=== PATIENT | female | born 1980 | race Caucasian/White ===

== ENCOUNTER 2025-01-01 00:18 | Emergency (ER) | payer MEDICAID, SELFPAY ==
[2025-01-01 00:18] VITALS: BMI 18.8
[2025-01-01 01:08] VITALS: BP 165/123; BP 176/125; PULSE 81; RESP 16; TEMP 36.8; O2SAT 99
[2025-01-01 01:39] VITALS: BP 155/107
--- NOTE | 2025-01-01 01:40 | EDNOTE_ITS ---
ED Dental RME/HPI General Chief complaint: Dental/Oral/Throat Stated complaint: LEFT SIDE FACE SWOLLEN, HURTS TO SWALLOW Time Seen by Provider: 01/01/25 00:28 Source: patient Arrival date/time: 01/01/25 00 This is a case of 44 year old female who came in with left lower dental pain with swelling on her left mandible for 1 week worse today denies drooling of saliva Limitations: no limitations Related Data Home Medications ?Medication ?Instructions ?Recorded ?Confirmed medroxyprogesterone 150 mg/mL 1 ml UD ##0 01/20/17 intramuscular suspension (Depo-Provera) Previous Rx's ?Medication ?Instructions ?Recorded clindamycin HCl 300 mg capsule 300 mg PO Q6H 10 days # 40 caps 01/01/25 hydrocodone 5 mg-acetaminophen 325 1 tab PO Q6H PRN pa in #10 tabs 01/01/25 mg tablet Allergies Allergy/AdvReac Type Severity Reaction Status Date / Time No Known Allergies Allergy Verified 01/25/18 08:44 Review of Systems Review of Systems Systems Reviewed: All systems reviewed, normal except as documented Constitutional Constitutional: Reports system reviewed and no additional complaints, except as documented and Denies headache(s) ENT Ears, Nose, Mouth, and Throat: Reports system reviewed and no additional complaints, except as documented, Reports as per HPI, Denies abnormal hearing, Denies bleeding gums, Denies change in voice, Reports dental pain, Denies disequilibrium, Denies dizziness, Denies dry mouth, Denies dysphagia, Denies ear discharge, Denies otalgia, Denies epistaxis, Denies facial pain, Denies halitosis, Denies headache(s), Denies hearing loss, Denies hoarseness, Denies lip swelling, Denies mouth lesions, Denies mouth pain, Denies nasal congestion and Denies nasal discharge Cardiovascular Cardiovascular: Reports system reviewed and no additional complaints, except as documented, Reports as per HPI, Denies chest pain and Denies chest pain at rest Gastrointestinal Gastrointestinal: Reports system reviewed and no additional complaints, except as documented, Reports as per HPI and Denies dysphagia Genitourinary Genitourinary: Reports system reviewed and no additional complaints, except as documented and Reports as per HPI Musculoskeletal Musculoskeletal: Reports system reviewed and no additional complaints, except as documented and Reports as per HPI Neurologic Neurologic: Reports system reviewed and no additional complaints, except as documented, Reports as per HPI, Denies abnormal hearing, Denies disequilibrium, Denies dizziness and Denies headache(s) Allergic/Immunologic Allergic/Immunologic: Denies lip swelling Past Medical History Past Medical History NEUROLOGIC: Positive Neurological Disorders and Migraine (LAST EPISODE 2013); Negative Seizures CARDIAC: Negative Cardiac Disorders or Congestive Heart Failure RESPIRATORY: Negative Chronic Obstructive Pulmonary Disease (COPD) GASTROINTESTINAL: Positive Gastrointestinal Disorders GENITOURINARY: Positive Genitourinary Disorders and Kidney Stones (NO NONA); Negative Renal Disease REPRODUCTIVE: Positive Previous Pregnancies (X1) MUSCULOSKELETAL: Positive Musculoskeletal Disorders ENDOCRINE: Negative Endocrine Disorders, Diabetes Mellitus Type 1 or Diabetes Mellitus Type 2 HEMATOLOGIC: Negative Blood Disorders OTHER HISTORY: Positive Chicken Pox; Negative Autoimmune Disease, Blood Transfusions or Anesthesia Reactions Family History FAMILY HISTORY: Positive Family Cardiac Disorders (sister), Family Cancer (FATHER (TESTICULAR CA)) and Family Surgery (SISTER) Social History SMOKING STATUS: Current every day smoker ED Exam General Limitations: Present no limitations General appearance: Present alert and in no apparent distress; Absent appears intoxicated, anxious or lethargic Head Head exam: Present atraumatic, normocephalic and normal inspection Eye Eye exam: Present normal appearance, PERRL and EOMI ENT ENT exam: Present normal exam, normal oropharynx and mucous membranes moist Expanded ENT Exam External ear exam: Present normal external inspection Nasal speculum exam: Bilateral: normal Mouth exam: Present normal external inspection; Absent drooling, trismus, lip swelling, tongue normal, tongue elevation, tongue swelling or laceration Teeth exam: Present dental caries and dental tenderness # Teeth numbered: 2 1. Dental Tenderness (Tenderness noted 1-2 [id number] with mild swelling no redness no asbcess abscess) Throat exam: Present normal inspection Neck Neck exam: Present normal inspection, full ROM and trachea midline Chest Chest inspection: Present normal inspection and symmetric chest wall rise Respiratory Respiratory exam: Present normal lung sounds bilaterally Cardiovascular Cardiovascular exam: Present regular rate, normal rhythm and normal heart sounds Abdominal Exam Abdominal exam: Present soft and normal bowel sounds Extremities Exam Extremities exam: Present normal inspection and full ROM Back Exam Back exam: Present normal inspection and full ROM Neurological Exam Neurological exam: Present alert, oriented X3 and CN II-XII intact Psychiatric Psychiatric exam: Present normal affect and normal mood Skin Skin exam: Present warm, dry, intact and normal color Course Quality Measures none Orders Category Date Time Status Clindamycin Vial [Cleocin vial] Med 01/01/25 01:35 Discontinued 600 mg IM X1 ONE HYDROcodone*/APAP 5/325 [Weston 5/325] Med 01/01/25 01:35 Discontinued 1 tab PO X1 ONE Ketorolac Inj [Toradol Inj] Med 01/01/25 01:35 Discontinued 30 mg IM X1 ONE Vital Signs Vital signs: Vital Signs Temperature 98.3 F 01/01/25 01:08 Pulse Rate 81 01/01/25 01:08 Respiratory Rate 16 01/01/25 01:08 Blood Pressure 176/125 H 01/01/25 01:08 Pulse Oximetry (%) 99 01/01/25 01:08 Oxygen Delivery Method Room Air 01/01/25 01:08 oxygent saturation 99 percent room air WNL Dental / Oral MDM Narrative MDM Narrative:: This is a case of 44 year old female who came in with left lower dental pain with swelling on her left mandible for 1 week worse today denies drooling of saliva Physical examination patient is awake alert oriented not in distress nontoxic looking noted mild to moderate tenderness on the left lower dental moderate tenderness on the tooth on the left lower dental went up with tongue depressor no abscess with mild swelling of the gum patient also noted to have mild swelling of the left mandibular area suggestive tooth abscess with facial cellulitis Patient was given clindamycin IM here in the emergency room and discharged with clindamycin to be taken for 10 days patient was also given Toradol and Weston which the pain improved patient was also discharged with Weston for pain Patient was advised to follow-up with PCP in 2 days for reevaluation and to follow-up here in the emergency room in 2 days for reevaluation of facial cellulitis or any worsening symptoms or any emergent concerns she will return in the emergency room immediately or call 911 There is no drooling of saliva no signs and symptoms of Lonnie's angina Patient was discharged with comfortable condition walking with stable gait. Patient verbalized no further complains explained diagnosis and answered patient question. Patient is comfortable with the proposed management plan including the need to follow up with his/her primary care physician and any specialist if applicable Discussed patient for any urgent condition or worsening sx, He/She needed to go to emergency room immediately or call 911. Patient acknowledge the responsibility to follow up as instructed and to monitor her/his symptoms. For any persistence of the symptoms for more than 3-5 days return precaution advised. Discussed the result of the test and was given printed discharge instruction Patient data External records reviewed:: [facility] previous records Clinical information provided by:: patient Social determinants that could affect healthcare access:: none Patient has the following chronic illnesses:: none How is presenting disease/condition affected by chronic disease/condition?: no chronic disease Evaluation data The following diagnostics were reviewed and interpreted by me:: other (specify) Lab and/or radiology exams considered but not ordered:: none Interpretation Summary: none Medications / Prescriptions Medications or Prescriptions considered but not ordered:: given Medication administrations:: Medication Administration History Discontinued Medications Hydrocodone Bitart/Acetaminophen (Hydrocodone/Apap 5/325 Tablet) 1 tab PO X1 ONE Stop: 01/01/25 01:36 Clindamycin Phosphate (Clindamycin Phos Inj 150 Mg/Ml Vial 6 Ml) 600 mg IM X1 ONE Stop: 01/01/25 01:36 Ketorolac Tromethamine (Ketorolac Inj 60 Mg/2 Ml Vial) 30 mg IM X1 ONE Stop: 01/01/25 01:36 given Consultations Consultation(s) initiated? (list below): No Diagnosis Dental Differential Diagnosis: gingival abscess, dental caries, toothache and dental abscess Most likely diagnosis given after review of the tests above:: tooth abscess with facial celulitis Admission Indicated Admission indicated?: not indicated Explain why admission is indicated or not indicated:: not indicated Admission Request Was there a request for admission?: No Admission Attestation Admission request attestation: none Disposition Plan Disposition Plan: Discharge Discharge Attestation Discharge Attestation: The patient and all family members were given an opportunity to ask questions and understood the discharge instructions. Discharge instructions specifically effects, indications for sooner follow up or return to the emergency department, and the expected course of current diagnosis. Patient condition: Stable Discharge Plan Plan Patient Disposition: HOME (Self Care) Prescriptions/Referrals Prescriptions/Med Rec: New clindamycin HCl 300 mg capsule 300 mg PO Q6H 10 Days Qty: 40 0RF hydrocodone-acetaminophen 5-325 mg tablet 1 tab PO Q6H MDD max 4 tabs per day PRN (Reason: pain) Qty: 10 0RF No Action medroxyprogesterone [Depo-Provera] 150 MG/1 ML suspension 1 ml UD Qty: 0 Problem List Clinical Impression: Tooth abscess, Facial cellulitis Patient/Caregiver Discharge Instructions Education Materials: ED Cellulitis, ED Tooth Abscess Additional Instructions: Follow-up with your primary care physician days for reevaluation return to the emergency room in 2 days for reevaluation of patient's cellulitis was important manage see your dentist in 2 days for reevaluation and possible dental procedure worsening symptoms or any emergent concern call 911 or go to the nearest emergency room Print Language: Maltese Stand Alone Forms: Celine Award Info., Patient Portal Info Letter PA/CORPORATE DEVELOPMENT ASSOCIATE Supervising Physician PA/CORPORATE DEVELOPMENT ASSOCIATE Supervising Physician: dr patel
[2025-01-01] MEDS: HYDROcodone/APAP 5/325 TABLET 1 TAB PO (02:10)
[2025-01-01] MEDS: KETOROLAC INJ 60 MG/2 ML VIAL 30 MG IM (02:11)
[2025-01-01] MEDS: CLINDAMYCIN PHOS INJ 150 MG/ML VIAL 6 ML 600 MG IM (02:13)
[2025-01-01 02:24] VITALS: BP 156/98; PULSE 76; RESP 16; TEMP 36.8
== END 2025-01-01 02:24 | disposition home or self-care (01) ==
LOC: SERX 01:42
PROVIDERS: Emergency Provider Emergency Medicine; PCP Registered Nurse Community Health
DX: K04.7 Periapical abscess without sinus (principal); L03.211 Cellulitis of face
CPT/HCPCS: 96372; 99283; J0736; J1885; A9270

== ENCOUNTER 2025-01-02 19:05 | Emergency (ER) | payer MEDICAID, SELFPAY ==
[2025-01-02 19:06] VITALS: BMI 18.8
[2025-01-02 20:14] VITALS: BP 118/75; PULSE 87; RESP 18; TEMP 36.9; O2SAT 99
--- NOTE | 2025-01-02 20:35 | PD.EDADULT ---
ED General RME/HPI General Chief complaint: Recheck/Abnormal Lab/Rx Stated complaint: HERE FOR ANOTHER ANTIBIOTIC SHOT FOR CELLULITIS Time Seen by Provider: 01/02/25 20:08 Arrival date/time: 01/02/25 19:05 RME / HPI RME / HPI narrative: 44-year-old female presents to the ED with complaint of left lower facial swelling. She was seen here on Wednesday and received an antibiotic injection of clindamycin for cellulitis to the face secondary to an abscessed tooth. She states she was told to return here for another antibiotic injection. She denies any problem with any teeth. She claims she thought the swelling was from flossing too hard. She denies fever or chills. She has been taking her antibiotic as prescribed. She states she does not have a dentist. She was advised to attempt to secure a dentist as soon as possible. Related Data Home Medications ?Medication ?Instructions ?Recorded ?Confirmed medroxyprogesterone 150 mg/mL 1 ml UD ##0 01/20/17 01/25/18 intramuscular suspension (Depo-Provera) Previous Rx's ?Medication ?Instructions ?Recorded clindamycin HCl 300 mg capsule 300 mg PO Q6H 10 days #40 caps 01/01/25 hydrocodone 5 mg-acetaminophen 325 1 tab PO Q6H PRN pain #10 tabs 01/01/25 mg tablet Allergies Allergy/AdvReac Type Severity Reaction Status Date / Time No Known Allergies Allergy Verified 01/02/25 19:08 Review of Systems Review of Systems Systems Reviewed: All systems reviewed, normal except as documented Past Medical History Past Medical History NEUROLOGIC: Positive Neurological Disorders and Migraine (LAST EPISODE 2013); Negative Seizures CARDIAC: Negative Cardiac Disorders or Congestive Heart Failure RESPIRATORY: Negative Chronic Obstructive Pulmonary Disease (COPD) GASTROINTESTINAL: Positive Gastrointestinal Disorders GENITOURINARY: Positive Genitourinary Disorders and Kidney Stones (NO NONA); Negative Renal Disease REPRODUCTIVE: Positive Previous Pregnancies (X1) MUSCULOSKELETAL: Positive Musculoskeletal Disorders ENDOCRINE: Negative Endocrine Disorders, Diabetes Mellitus Type 1 or Diabetes Mellitus Type 2 HEMATOLOGIC: Negative Blood Disorders OTHER HISTORY: Positive Chicken Pox; Negative Autoimmune Disease, Blood Transfusions or Anesthesia Reactions Family History FAMILY HISTORY: Positive Family Cardiac Disorders (sister), Family Cancer (FATHER (TESTICULAR CA)) and Family Surgery (SISTER) Social History SMOKING STATUS: Light (< 1 pack/day) ED Exam Narrative Physical exam: Alert and oriented 44-year-old female, no acute distress. Mild left lower jaw swelling without erythema or tenderness. No obvious abscess noted to the left lower jawline. Course Course Course Narrative: 44-year-old female presents to the ED with complaint of left lower facial swelling. She was seen here on Wednesday and received an antibiotic injection of clindamycin for cellulitis to the face secondary to an abscessed tooth. She states she was told to return here for another antibiotic injection. She denies any problem with any teeth. She claims she thought the swelling was from flossing too hard. She denies fever or chills. She has been taking her antibiotic as prescribed. She states she does not have a dentist. She was advised to attempt to secure a dentist as soon as possible. Alert and oriented 44-year-old female, no acute distress. Mild left lower jaw swelling without erythema or tenderness. No obvious abscess noted to the left lower jawline. Norel the past by and noticed that the patient looked much improved. She did not fee additional IM antibiotics were necessary. Patient was advised to secure a dentist to soon as possible for definitive treatment. Quality Measures none Vital Signs Vital signs: Vital Signs Temperature 98.5 F 01/02/25 20:14 Pulse Rate 87 01/02/25 20:14 Respiratory Rate 18 01/02/25 20:14 Blood Pressure 118/75 01/02/25 20:14 Pulse Oximetry (%) 99 01/02/25 20:14 Oxygen Delivery Method Room Air 01/02/25 20:14 Discharge Plan Plan Patient Disposition: HOME (Self Care) Discharge Disposition comment: Stable Prescriptions/Referrals Prescriptions/Med Rec: No Action medroxyprogesterone [Depo-Provera] 150 MG/1 ML suspension 1 ml UD Qty: 0 clindamycin HCl 300 mg capsule 300 mg PO Q6H 10 Days Qty: 40 0RF hydrocodone-acetaminophen 5-325 mg tablet 1 tab PO Q6H MDD max 4 tabs per day PRN (Reason: pain) Qty: 10 0RF Referrals: No Primary/Family,Physician [Primary Care Provider] - In 1 week Problem List Clinical Impression: Tooth abscess, Facial cellulitis Impression comment: Your infection is improving. Continue to take your oral antibiotics as previously prescribed. Patient/Caregiver Discharge Instructions Education Materials: Dental Abscess, ED Cellulitis, Facial Additional Instructions: Take the antibiotics as prescribed and complete the course even though you may be feeling better. Secure a dentist as soon as possible for definitive treatment of the dental problem that caused the facial cellulitis. Follow-up with your primary care physician in 24 to 48 hours. Return to the ED for any new or worsening symptoms. Print Language: Kiswahili Stand Alone Forms: Celine Award Info., Patient Portal Info Letter PA/ALISSA Supervising Physician PA/ALISSA Supervising Physician: Dr Jones [facility] Narrative Procedures done or offered: N/A Clinical Information Provided by patient Medical Records Reviewed [facility] ED visit of 12/31/24. Meds/Rx Considered, not Ordered None Describe details: N/A Labs/Rad/Tests considered, not Ordered None Describe details: N/A Chronic Illness/Social Conditions which may negatively complicate care or outcome(s)-explain: None or not applicable Add or document further as needed: N/A EKG EKG not done EKG Interpretation narrative: N/A Lab Interpretation Labs: none Lab(s) interpretation(s): N/A Imaging Imaging interpretation: none Provider imaging interpretation(s): N/A Radiology reports / interpretation(s): N/A Medication Administration(s) none N/A, oral antibiotics are sufficient at this time. Diagnosis Differential diagnosis: Dental abscess, apical abscess, cellulitis, mumps Most likely dx, and/or detailed dx discussion: Dental abscess with cellulitis, improving. Dispositon Disposition: Discharge Home Disposition comments: Patient is stable for discharge
--- NOTE | 2025-01-02 20:50 | PC.NURSE ---
per provider patient eloped.
== END 2025-01-02 20:50 | disposition home or self-care (01) ==
PROVIDERS: Emergency Provider Emergency Medicine
DX: K04.7 Periapical abscess without sinus (principal); L03.211 Cellulitis of face
CPT/HCPCS: 99281